=== PATIENT | female | born 1960 | race Two or more races ===

== ENCOUNTER 2017-01-17 08:16 | Emergency (ER) | payer MEDICAID ==
[~2017-01-17] VITALS: Ht 152.4 cm; Wt 64.9 kg
--- NOTE | 2017-01-17 08:57 | NUR ---
patient was seen by Md for c/o upper mid back pain. DC, Rx nd follow up instructions given and explined to patient who states she understands all instructions.
[2017-01-17] MEDS ORDERED: CELECOXIB 100 MG CAPSULE PO ONE (09:00)
[2017-01-17] MEDS ORDERED: CELECOXIB 100 MG CAPSULE ONE (09:08)
== END 2017-01-17 08:59 | disposition home or self-care (01) ==
LOC: ER 08:16
DX: M54.9 Dorsalgia, unspecified (principal); B34.9 Viral infection, unspecified; M19.90 Unspecified osteoarthritis, unspecified site
CPT/HCPCS: A4663